=== PATIENT | female | born 1990 | race African-American/Black ===

== ENCOUNTER 2017-01-09 09:30 | Emergency (ER) | payer OTHER, MEDICAID ==
[~2017-01-09] VITALS: Ht 157.5 cm; Wt 137.2 kg
[~2017-01-09 09:30] MED LIST: ALBU8.5H3 INH; ATARAX; BUSP5TAB2 PO; IBUP-1222 PO; OXYC-302 PO; PREN1TAB60 PO; RANI75TA12 PO
[2017-01-09] MEDS ORDERED: FLUORESCEIN OPHTHALMIC 1 MG STRIP ONE (10:14)
[2017-01-09] MEDS ORDERED: PROPARACAINE OPHTH 0.5%, 15ML ONE (10:14)
[2017-01-09] MEDS ORDERED: PROPARACAINE OPHTH 0.5%, 15ML LEFTEYE ONE (10:30)
[2017-01-09] MEDS ORDERED: METOCLOPRAMIDE 5 MG/ML, 2ML IVPush ONE (10:30)
[2017-01-09] MEDS ORDERED: SODIUM CHLORIDE 0.9% 1,000ML IVBOLUS ONE (10:30)
[2017-01-09] MEDS ORDERED: FLUORESCEIN OPHTHALMIC 1 MG STRIP LEFTEYE ONE (10:30)
[2017-01-09] MEDS ORDERED: MECLIZINE CHEWABLE 25 MG TAB PO ONE (10:30)
[2017-01-09] MEDS ORDERED: DIPHENHYDRAMINE 50 MG/ML, 1ML IVPush ONE (10:30)
[2017-01-09] MEDS ORDERED: SODIUM CHLORIDE FLUSH 10ML SYR IVF ONE (10:30)
[2017-01-09] MEDS ORDERED: KETOROLAC 30 MG/1 ML IVPush ONE (10:30)
[2017-01-09] MEDS ORDERED: TRAM50TA2 PO (10:38)
[2017-01-09] MEDS ORDERED: KETOROLAC 30 MG/1 ML ONE (10:44)
[2017-01-09] MEDS ORDERED: MECLIZINE CHEWABLE 25 MG TAB ONE (10:44)
[2017-01-09] MEDS ORDERED: METOCLOPRAMIDE 5 MG/ML, 2ML ONE (10:44)
[2017-01-09] MEDS ORDERED: DIPHENHYDRAMINE 50 MG/ML, 1ML ONE (10:44)
[2017-01-09 12:13] VITALS: BP 143/73
== END 2017-01-09 12:15 | disposition home or self-care (01) ==
LOC: ED 10:41
DX: R51 Headache (principal); R42 Dizziness and giddiness; R11.2 Nausea with vomiting, unspecified
CPT/HCPCS: 96361; 96374; 96375; J1885; J1200; J2765; J7030

== ENCOUNTER 2017-01-24 12:07 | Emergency (ER) | payer MEDICAID, OTHER ==
[~2017-01-24] VITALS: Ht 160 cm; Wt 133.0 kg
[~2017-01-24 12:07] MED LIST changes: +TRAM50TA2 PO
[2017-01-24 13:40] LABS: PATH.CAST-FLAG NOT PRESENT; SPERM-FLAG NOT PRESENT; SRC-FLAG NOT PRESENT; XTAL-FLAG NOT PRESENT; YLC-FLAG NOT PRESENT
[2017-01-24] MEDS ORDERED: HYDROcodone/APAP 5/325 TABLET ONE (13:52)
[2017-01-24] MEDS ORDERED: ONDANSETRON ODT 4 MG ONE (13:53)
[2017-01-24] MEDS ORDERED: HYDROcodone/APAP 5/325 TABLET PO ONE (14:00)
[2017-01-24] MEDS ORDERED: ONDANSETRON ODT 4 MG PO ONE (14:00)
[2017-01-24 14:11] LABS: ASPARTATE AMINO TRANSFERASE 20 U/L (15-37); BLOOD UREA NITROGEN 11 mg/dL (7-18)
[2017-01-24 15:30] VITALS: BP 116/82
== END 2017-01-24 15:58 | disposition home or self-care (01) ==
LOC: ED 13:28
DX: N30.00 Acute cystitis without hematuria (principal); R10.11 Right upper quadrant pain; R10.2 Pelvic and perineal pain; Z88.8 Allergy status to other drugs, medicaments and biological substances
CPT/HCPCS: 36415; 80053; 81001; 83690; 84703; 85025; 87086; 99284; Q0162

== ENCOUNTER 2017-02-14 18:42 | Emergency (ER) | payer MEDICAID ==
[~2017-02-14] VITALS: Ht 157.5 cm; Wt 137.2 kg
[2017-02-14 18:52] VITALS: BP 116/76
[2017-02-14] MEDS ORDERED: SODIUM CHLORIDE FLUSH 10ML SYR IVF ONE (19:30)
[2017-02-14] MEDS ORDERED: SODIUM CHLORIDE 0.9% 1,000ML IVBOLUS ONE (19:30)
[2017-02-14] MEDS ORDERED: METOCLOPRAMIDE 5 MG/ML, 2ML IVPush ONE (19:30)
[2017-02-14] MEDS ORDERED: SUMATRIPTAN 6MG/0.5ML SQ ONE (19:30)
[2017-02-14] MEDS ORDERED: KETOROLAC 30 MG/1 ML IVPush ONE (19:30)
[2017-02-14] MEDS ORDERED: DIPHENHYDRAMINE 50 MG/ML, 1ML IVPush ONE (19:30)
[2017-02-14] MEDS ORDERED: DIPHENHYDRAMINE 50 MG/ML, 1ML ONE (19:38)
[2017-02-14] MEDS ORDERED: KETOROLAC 30 MG/1 ML ONE (19:38)
[2017-02-14] MEDS ORDERED: METOCLOPRAMIDE 5 MG/ML, 2ML ONE (19:38)
[2017-02-14] MEDS ORDERED: OXYC-302 PO (19:47)
[2017-02-14] MEDS ORDERED: IBUP200C PO (19:47)
[2017-02-14] MEDS ORDERED: TRAM50TA2 PO (19:47)
== END 2017-02-14 20:45 | disposition home or self-care (01) ==
LOC: ED 20:30
DX: G44.209 Tension-type headache, unspecified, not intractable (principal)
CPT/HCPCS: 81001; 87086; 96361; 96374; 96375; 99284; J1200; J1885; J2765; J7030

== ENCOUNTER → 2017-08-13 | Outpatient (CLI) | payer MEDICAID ==
[~2017-08-13] MED LIST changes: -ALBU8.5H3 INH; +ALBU8.5H8 INH; +IBUP200C5 PO
== END | disposition home or self-care (01) ==
LOC: CFH 14:01
PROVIDERS: ATTEND Nurse Practitioner Primary Care
DX: S83.511A Sprain of anterior cruciate ligament of right knee, initial encounter (principal); M94.261 Chondromalacia, right knee; M25.461 Effusion, right knee; X58.XXXA Exposure to other specified factors, initial encounter; Y93.89 Activity, other specified; Y92.89 Other specified places as the place of occurrence of the external cause; Y99.8 Other external cause status

== ENCOUNTER 2017-11-05 18:00 | Observation (INO) | payer MEDICAID ==
[~2017-11-05] VITALS: Ht 157.5 cm; Wt 148.1 kg
[2017-11-05] MEDS ORDERED: SODIUM CHLORIDE FLUSH 10ML SYR IVF ONE (18:30)
[2017-11-05 18:51] LABS: BASOPHILS # (AUTO) 0.03 x10^3/uL (0-0.1); BASOPHILS % (AUTO) 0 % (0-1); EOSINOPHILS % (AUTO) 0 % (1-7); LYMPHOCYTES # (AUTO) 0.55 x10^3/uL (1-3.4); LYMPHOCYTES % (AUTO) 5 % (22-44); MD NO; MEAN CORPUSCULAR HEMOGLOBIN 25.3 pg (27.0-34.8); MEAN CORPUSCULAR HGB CONC 32.7 g/dL (32.4-35.8); MEAN CORPUSCULAR VOLUME 77.4 fL (80-100); MEAN PLATELET VOLUME 10.2 fL (7.4-10.4); MONOCYTES # (AUTO) 0.05 x10^3/uL (0.2-0.8); MONOCYTES % (AUTO) 1 % (2-9); NEUTROPHILS # (AUTO) 10.15 x10^3/uL (1.8-6.8); NEUTROPHILS % (AUTO) 94 % (42-75); PLATELET COUNT 322 x10^3/uL (130-400); RED BLOOD COUNT 4.95 x10^6/uL (3.82-5.3); RED CELL DISTRIBUTION WIDTH 16.3 % (9.6-15.2)
[2017-11-05 19:02] LABS: ALANINE AMINOTRANSFERASE 20 U/L (12-78); ALBUMIN 3.2 g/dL (3.4-5.0); ANION GAP 10 mmol/L (5-15); CHLORIDE 108 mmol/L (98-107); CREATININE 1.05 mg/dL (0.55-1.02)
[2017-11-05 19:05] LABS: ALKALINE PHOSPHATASE 85 U/L (45-117); BILIRUBIN,TOTAL 0.3 mg/dL (0.2-1.0); TOTAL PROTEIN 7.3 g/dL (6.4-8.2)
[2017-11-05] MEDS ORDERED: OXYcodone/APAP 7.5/325MG TABLET ONE (19:20)
[2017-11-05] MEDS ORDERED: OXYcodone/APAP 7.5/325MG TABLET PO ONE (19:30)
[2017-11-05] MEDS ORDERED: OMNIPAQUE 350 MG/ML, 100ML BOTTLE ONE (20:09)
[2017-11-05] MEDS ORDERED: ACETAMINOPHEN 325 MG TABLET PO PRN (21:30)
[2017-11-05] MEDS ORDERED: ONDANSETRON 2MG/ML, 2ML IVPush PRN (21:30)
[2017-11-05] MEDS ORDERED: ENOXAPARIN 40 MG/0.4 ML SQ SCH (21:30)
[2017-11-05] MEDS ORDERED: DOCUSATE 100 MG CAPSULE PO PRN (21:30)
[2017-11-05] MEDS ORDERED: POLYETHYLENE GLYCOL 17 GM PACKET PO PRN (21:30)
[2017-11-05 22:15] VITALS: BP 114/75
[2017-11-05] MEDS ORDERED: OXYC-307 PO (22:42)
[2017-11-05] MEDS ORDERED: MELO7.5T31 PO (22:42)
[2017-11-05] MEDS ORDERED: ASPI-650 PO (22:42)
[2017-11-06] MEDS: IBUPROFEN 200 MG TABLET PO SCH ×2 (00:09→12:05)
[2017-11-06 01:09] VITALS: BP 117/73
[2017-11-06] MEDS: INSULIN LISPRO 100 UNITS/ML, PEN SQ-INSULIN SCH ×2 (07:00→11:00)
[2017-11-06 07:32] VITALS: BP 86/52
[2017-11-06] MEDS ORDERED: SENNA/DOCUSATE TABLET PO SCH (09:00)
[2017-11-06] MEDS ORDERED: SODIUM CHLORIDE FLUSH 10ML SYR IVF SCH (09:00)
== END 2017-11-06 12:23 | disposition home or self-care (01) ==
LOC: ED 18:55 → EDIP 21:01 → INTOOBSV 21:01 → 4NOR 22:05 → DCLOUNGE 11-06 12:12
PROVIDERS: ADMIT Family Medicine; ATTEND Family Medicine
DX: R06.00 Dyspnea, unspecified (principal); F41.9 Anxiety disorder, unspecified; E66.01 Morbid (severe) obesity due to excess calories; R73.03 Prediabetes; Z68.43 Body mass index [BMI] 50.0-59.9, adult; Z79.82 Long term (current) use of aspirin
CPT/HCPCS: 36415; 71045; 71275; 80053; 82962; 83880; 85025; 85379; 93005; 96372; 97162; 99285; G0378; G8978; G8979; G8980; J1650; Q9967

== ENCOUNTER 2018-07-19 10:38 | Emergency (ER) | payer OTHER ==
[~2018-07-19] VITALS: Ht 157.5 cm; Wt 144.0 kg
[~2018-07-19 10:38] MED LIST changes: +ASPI-650 PO; +IBUP-1623 PO; -IBUP200C5 PO; +MELO7.5T31 PO; +OXYC-307 PO
[2018-07-19] MEDS ORDERED: SODIUM CHLORIDE FLUSH 10ML SYR IVF ONE (11:00)
[2018-07-19] MEDS ORDERED: MAALOX/HYOSCYAMINE/LIDOCAINE 45 ML BTL PO ONE (11:00)
[2018-07-19] MEDS ORDERED: FAMOTIDINE 20 MG/2 ML IVP ONE (11:00)
[2018-07-19] MEDS ORDERED: SODIUM CHLORIDE 0.9% 1,000ML IVBOLUS ONE (11:00)
[2018-07-19] MEDS ORDERED: ONDANSETRON 2MG/ML, 2ML IVPush ONE (11:00)
[2018-07-19 11:18] LABS: BASOPHILS # (AUTO) 0.01 x10^3/uL (0-0.1); BASOPHILS % (AUTO) 0 % (0-1); EOSINOPHILS # (AUTO) 0.02 x10^3/uL (0-0.4); EOSINOPHILS % (AUTO) 0 % (1-7); LYMPHOCYTES # (AUTO) 0.79 x10^3/uL (1-3.4); LYMPHOCYTES % (AUTO) 9 % (22-44); MD NO; MEAN CORPUSCULAR HEMOGLOBIN 25.1 pg (27.0-34.8); MEAN CORPUSCULAR HGB CONC 32.5 g/dL (32.4-35.8); MEAN CORPUSCULAR VOLUME 77.4 fL (80-100); MEAN PLATELET VOLUME 10.3 fL (7.4-10.4); MONOCYTES # (AUTO) 0.17 x10^3/uL (0.2-0.8); MONOCYTES % (AUTO) 2 % (2-9); NEUTROPHILS # (AUTO) 8.06 x10^3/uL (1.8-6.8); NEUTROPHILS % (AUTO) 89 % (42-75); PLATELET COUNT 310 x10^3/uL (130-400); RED BLOOD COUNT 5.41 x10^6/uL (3.82-5.3); RED CELL DISTRIBUTION WIDTH 15.4 % (9.6-15.2)
[2018-07-19 11:28] LABS: ALANINE AMINOTRANSFERASE 27 U/L (12-78); ALBUMIN 3.3 g/dL (3.4-5.0); CALCIUM 8.9 mg/dL (8.5-10.1); CHLORIDE 109 mmol/L (98-107)
[2018-07-19 11:33] LABS: ALKALINE PHOSPHATASE 94 U/L (45-117); TOTAL PROTEIN 7.5 g/dL (6.4-8.2)
[2018-07-19 12:12] LABS: ANION GAP 12 mmol/L (5-15); BILIRUBIN,TOTAL 0.6 mg/dL (0.2-1.0)
[2018-07-19] MEDS ORDERED: FAMOTIDINE 20 MG/2 ML ONE (12:21)
[2018-07-19] MEDS ORDERED: ONDANSETRON 2MG/ML, 2ML ONE (12:21)
[2018-07-19] MEDS ORDERED: MAALOX/HYOSCYAMINE/LIDOCAINE 45 ML BTL ONE (12:21)
[2018-07-19] MEDS ORDERED: PARO40TA61 PO (12:29)
[2018-07-19] MEDS ORDERED: BUSP5TAB2 PO (12:29)
[2018-07-19 14:01] VITALS: BP 121/73
[2018-07-19 14:35] LABS: MICROSCOPIC NOT IND
[2018-07-19 14:45] LABS: CULTURE INDICATED? NO
== END 2018-07-19 15:36 ==
LOC: ED 15:35
DX: R10.11 Right upper quadrant pain (principal); R11.2 Nausea with vomiting, unspecified; R19.7 Diarrhea, unspecified
CPT/HCPCS: 36415; 76700; 80053; 81003; 83690; 84703; 85025; 93005; 96361; 96374; 96375; 99284; J2405; J3490; J7030

== ENCOUNTER 2019-02-08 19:38 | Emergency (ER) | payer MEDICAID, OTHER ==
[~2019-02-08] VITALS: Ht 157.5 cm; Wt 134.0 kg
[~2019-02-08 19:38] MED LIST changes: +DULO60CA7 PO; +PARO40TA61 PO; +PRAZ2CAP2 PO; +TRAZ-137 PO
--- NOTE | 2019-02-08 19:51 | NUR ---
[facility] FROM [facility] WAITING ROOM, EMT STATED PT WAS IN WAITING AREA X3 HOURS. PT C/O TISSUE DISCHARGE AND DARK BLACK VAGINAL BLEEDING X 1 WEEK, ABD CRAMPING X 2DAYS. PT STATED SHE HAS NOT HAD MENSTAL PERIOD X 1 YEAR ON DEPO SHOT. PT ALSO STATED SHE TOOK HOME PREGANANCY TEST 2 WEEKS AGO THAT WAS +. B/P-136/58, ENROUTE B/P DROPPED TO 80/40 AND ON REVHECK B/P-109/74, HR-90, 95% R/A. PT UP TO RR WITH STEADY GAIT, NOW RESTING ON GURNEY, MONITORS APPLIED, SIDERAILS UP X2, CALL LIGHT WITHIN REACH. TEENAGE PROGRAM DIRECTOR AT BEDSIDE FOR EVAL
--- NOTE | 2019-02-08 20:15 | NUR ---
urine sample taken to lab, pt at ultrasound
[2019-02-08] MEDS ORDERED: MEDR150D3 INJ (20:20)
[2019-02-08] MEDS ORDERED: GLYB1.252 PO (20:20)
--- NOTE | 2019-02-08 20:32 | NUR ---
PT RESTING ON [employer] CON[employer] AT BEDSIDE, MONITORS IN PLACE, CALL LIGHT WITHIN REACH. AWAITING ULTRASOUND AND LAB RESULTS
[2019-02-08 20:35] LABS: MICROSCOPIC INDICATED
[2019-02-08 20:38] LABS: CULTURE INDICATED? YES
[2019-02-08 20:48] LABS: BASOPHILS # (AUTO) 0.02 x10^3/uL (0-0.1); BASOPHILS % (AUTO) 0 % (0-1); EOSINOPHILS # (AUTO) 0.01 x10^3/uL (0-0.4); EOSINOPHILS % (AUTO) 0 % (1-7); LYMPHOCYTES # (AUTO) 1.51 x10^3/uL (1-3.4); LYMPHOCYTES % (AUTO) 23 % (22-44); MD NO; MEAN CORPUSCULAR HEMOGLOBIN 26.1 pg (27.0-34.8); MEAN CORPUSCULAR HGB CONC 31.9 g/dL (32.4-35.8); MEAN CORPUSCULAR VOLUME 81.6 fL (80-100); MEAN PLATELET VOLUME 9.9 fL (7.4-10.4); MONOCYTES # (AUTO) 0.43 x10^3/uL (0.2-0.8); MONOCYTES % (AUTO) 7 % (2-9); NEUTROPHILS # (AUTO) 4.67 x10^3/uL (1.8-6.8); NEUTROPHILS % (AUTO) 70 % (42-75); PLATELET COUNT 277 x10^3/uL (130-400); RED BLOOD COUNT 5.06 x10^6/uL (3.82-5.3)
[2019-02-08 20:56] LABS: ALBUMIN 3.4 g/dL (3.4-5.0); ANION GAP 5 mmol/L (5-15); CHLORIDE 110 mmol/L (98-107)
[2019-02-08 21:02] LABS: ALANINE AMINOTRANSFERASE 20 U/L (12-78); ALKALINE PHOSPHATASE 83 U/L (45-117); BILIRUBIN,TOTAL 0.6 mg/dL (0.2-1.0); CREATININE 1.05 mg/dL (0.55-1.02); TOTAL PROTEIN 7.1 g/dL (6.4-8.2)
[2019-02-08] MEDS ORDERED: ACETAMINOPHEN 325 MG TABLET ONE (21:24)
--- NOTE | 2019-02-08 21:28 | NUR ---
PT MEDICATED PER OCT. RESTING ON GURNEY, MONITORS IN PLACE, CALL LIGHT WITHIN REACH, ALL QUESTIONS ADDRESSED, PROVIDED PT WITH XTRA WARM BLANKET
[2019-02-08 21:29] VITALS: BP 112/62
[2019-02-08] MEDS ORDERED: ACETAMINOPHEN 325 MG TABLET PO ONE (21:30)
== END 2019-02-08 21:45 | disposition home or self-care (01) ==
LOC: ED 20:21
DX: R10.2 Pelvic and perineal pain (principal); N93.8 Other specified abnormal uterine and vaginal bleeding; E66.9 Obesity, unspecified
CPT/HCPCS: 36415; 76830; 80053; 81001; 84702; 85025; 86901; 87086; 99284

== ENCOUNTER 2019-08-04 17:32 | Emergency (ER) | payer MEDICAID ==
[~2019-08-04] VITALS: Ht 157.5 cm; Wt 144.7 kg
[~2019-08-04 17:32] MED LIST changes: +GLYB1.252 PO; +MEDR150D3 INJ; +RANI-244 PO; -RANI75TA12 PO
--- NOTE | 2019-08-04 18:39 | NUR ---
UA SENT TO LAB. PT RESTING IN [facility], CALL LIGHT WITHIN REACH
[2019-08-04 18:58] LABS: MEAN CORPUSCULAR HEMOGLOBIN 26.6 pg (27.0-34.8); MEAN CORPUSCULAR VOLUME 82.4 fL (80-100); RED BLOOD COUNT 4.86 x10^6/uL (3.82-5.3)
[2019-08-04 18:59] LABS: BASOPHILS # (AUTO) 0.04 x10^3/uL (0-0.1); BASOPHILS % (AUTO) 1 % (0-1); EOSINOPHILS % (AUTO) 1 % (1-7); LYMPHOCYTES # (AUTO) 1.73 x10^3/uL (1-3.4); LYMPHOCYTES % (AUTO) 20 % (22-44); MD NO; MEAN CORPUSCULAR HGB CONC 32.3 g/dL (32.4-35.8); MEAN PLATELET VOLUME 9.1 fL (7.4-10.4); MONOCYTES # (AUTO) 0.67 x10^3/uL (0.2-0.8); MONOCYTES % (AUTO) 8 % (2-9); NEUTROPHILS # (AUTO) 5.92 x10^3/uL (1.8-6.8); NEUTROPHILS % (AUTO) 70 % (42-75); PLATELET COUNT 252 x10^3/uL (130-400); RED CELL DISTRIBUTION WIDTH 15.6 % (9.6-15.2)
--- NOTE | 2019-08-04 19:02 | NUR ---
PT RESTING IN [facility], AWAITING LAB RESULTS. CALL LIGHT WITHIN REACH
[2019-08-04 19:03] LABS: CULTURE INDICATED? YES; MICROSCOPIC INDICATED
[2019-08-04 19:09] LABS: ALBUMIN 3.2 g/dL (3.4-5.0); ANION GAP 6 mmol/L (5-15); CALCIUM 9.1 mg/dL (8.5-10.1); CHLORIDE 106 mmol/L (98-107)
[2019-08-04 19:12] LABS: ALANINE AMINOTRANSFERASE 30 U/L (12-78); ALKALINE PHOSPHATASE 79 U/L (45-117); BILIRUBIN,TOTAL 0.7 mg/dL (0.2-1.0); CREATININE 0.65 mg/dL (0.55-1.02); TOTAL PROTEIN 7.3 g/dL (6.4-8.2)
[2019-08-04 22:17] VITALS: BP 128/76
== END 2019-08-04 22:19 | disposition home or self-care (01) ==
LOC: ED 22:15
DX: O26.891 Other specified pregnancy related conditions, first trimester (principal); B96.89 Other specified bacterial agents as the cause of diseases classified elsewhere; E11.9 Type 2 diabetes mellitus without complications; Z90.49 Acquired absence of other specified parts of digestive tract; Z3A.01 Less than 8 weeks gestation of pregnancy
CPT/HCPCS: 36415; 76801; 80053; 81001; 83690; 84702; 85025; 87086; 99284

== ENCOUNTER 2019-08-28 17:37 | Emergency (ER) | payer BC, MEDICAID ==
[~2019-08-28] VITALS: Ht 157.5 cm; Wt 143.9 kg
--- NOTE | 2019-08-28 18:13 | NUR ---
STOREKEEPER HELPER: URINE COLLECTED AND SENT TO LAB.
[2019-08-28 18:23] LABS: MICROSCOPIC NOT IND
[2019-08-28 18:26] LABS: CULTURE INDICATED? NO
--- NOTE | 2019-08-28 19:42 | NUR ---
PT MOVED TO ROOM
[2019-08-28 19:52] VITALS: BP 130/72
--- NOTE | 2019-08-28 19:53 | NUR ---
THIS IS A 29Y F THAT COMES IN FOR INABLILITY TO URINIATE AND CONSTIPATION. PER PT SHE DRANK MAG CIT[employer] THIS WEEK TO "CLEAR" HERSELF OUT PER OB NURSE INSTRUCTION BUT STILL FEELS CONSTIPATED NOW SHE STS SHE CANNOT URINATE AND HAS PAIN INTO HER KIDNEY WHEN SHE TRIES TO PEE. PT HAS HX OF KIDNEY STONES. PT CONNECTED TO MONITORING VSSHONE[employer]. MED STUDENT AT BEDSIDE.
[2019-08-28] MEDS ORDERED: PINK LADY ENEMA 490 ML BOTTLE PR ONE (20:30)
== END 2019-08-28 20:51 | disposition home or self-care (01) ==
LOC: ED 20:22
DX: O26.891 Other specified pregnancy related conditions, first trimester (principal); K59.00 Constipation, unspecified; E11.9 Type 2 diabetes mellitus without complications; E66.9 Obesity, unspecified; Z3A.11 11 weeks gestation of pregnancy
CPT/HCPCS: 81003; 99284

== ENCOUNTER 2019-10-09 10:40 | Emergency (ER) | payer BC, MEDICAID ==
[~2019-10-09] VITALS: Ht 157.5 cm; Wt 140.0 kg
[~2019-10-09 10:40] MED LIST changes: -TRAZ-137 PO; +TRAZ-175 PO
--- NOTE | 2019-10-09 11:31 | NUR ---
HOT PATCHER: PT TO ROOM FROM [facility]
[2019-10-09] MEDS ORDERED: ONDANSETRON 2MG/ML, 2ML IVPush ONE (12:00)
[2019-10-09] MEDS ORDERED: SODIUM CHLORIDE 0.9% 1,000ML IVBOLUS ONE (12:00)
[2019-10-09] MEDS ORDERED: SODIUM CHLORIDE FLUSH 10ML SYR IVF ONE (12:00)
[2019-10-09 12:13] LABS: BASOPHILS # (AUTO) 0.01 x10^3/uL (0-0.1); BASOPHILS % (AUTO) 0 % (0-1); EOSINOPHILS % (AUTO) 0 % (1-7); LYMPHOCYTES # (AUTO) 0.31 x10^3/uL (1-3.4); LYMPHOCYTES % (AUTO) 7 % (22-44); MD NO; MEAN CORPUSCULAR HEMOGLOBIN 26.8 pg (27.0-34.8); MEAN CORPUSCULAR HGB CONC 32.9 g/dL (32.4-35.8); MEAN CORPUSCULAR VOLUME 81.5 fL (80-100); MEAN PLATELET VOLUME 9.8 fL (7.4-10.4); MONOCYTES # (AUTO) 0.35 x10^3/uL (0.2-0.8); MONOCYTES % (AUTO) 7 % (2-9); NEUTROPHILS # (AUTO) 4.08 x10^3/uL (1.8-6.8); NEUTROPHILS % (AUTO) 86 % (42-75); PLATELET COUNT 237 x10^3/uL (130-400); RED BLOOD COUNT 4.82 x10^6/uL (3.82-5.3); RED CELL DISTRIBUTION WIDTH 14.8 % (9.6-15.2)
[2019-10-09 12:15] LABS: RAPID INFLUENZA A POSITIVE (Negative); RAPID INFLUENZA B Negative (Negative)
[2019-10-09] MEDS ORDERED: ONDANSETRON 2MG/ML, 2ML ONE (12:16)
[2019-10-09 12:26] LABS: ALANINE AMINOTRANSFERASE 15 U/L (12-78); ALBUMIN 2.8 g/dL (3.4-5.0); ANION GAP 8 mmol/L (5-15); CALCIUM 8.6 mg/dL (8.5-10.1); CHLORIDE 108 mmol/L (98-107); CREATININE 0.55 mg/dL (0.55-1.02)
[2019-10-09 12:28] LABS: ALKALINE PHOSPHATASE 68 U/L (45-117); BILIRUBIN,TOTAL 0.2 mg/dL (0.2-1.0); TOTAL PROTEIN 6.9 g/dL (6.4-8.2)
[2019-10-09 13:08] LABS: CULTURE INDICATED? YES
[2019-10-09 13:23] LABS: MICROSCOPIC INDICATED
[2019-10-09 13:42] VITALS: BP 110/80
== END 2019-10-09 14:03 | disposition home or self-care (01) ==
LOC: ED 12:34
DX: O23.12 Infections of bladder in pregnancy, second trimester (principal); O21.9 Vomiting of pregnancy, unspecified; O24.419 Gestational diabetes mellitus in pregnancy, unspecified control; K52.9 Noninfective gastroenteritis and colitis, unspecified; J10.1 Influenza due to other identified influenza virus with other respiratory manifestations; Z90.49 Acquired absence of other specified parts of digestive tract; Z3A.17 17 weeks gestation of pregnancy
CPT/HCPCS: 36415; 80053; 81001; 83690; 85025; 87086; 87147; 87400; 96361; 96374; 99283; J2405; J7030

== ENCOUNTER 2020-01-09 15:33 | Outpatient (CLI) | payer MEDICAID ==
[~2020-01-09] VITALS: Ht 154.9 cm; Wt 150.0 kg
[2020-01-09 17:29] VITALS: BP 120/65
== END 2020-01-09 16:00 | disposition home or self-care (01) ==
LOC: LDOP 15:33
PROVIDERS: ATTEND Obstetrics & Gynecology
DX: O26.893 Other specified pregnancy related conditions, third trimester (principal); R25.2 Cramp and spasm; Z3A.30 30 weeks gestation of pregnancy
CPT/HCPCS: 59025; 99211; G0463

== ENCOUNTER 2020-02-18 00:16 | Outpatient (CLI) | payer MEDICAID ==
[~2020-02-18] VITALS: Ht 157.5 cm; Wt 140.9 kg
[2020-02-18 01:57] LABS: MICROSCOPIC INDICATED
== END 2020-02-18 02:35 | disposition home or self-care (01) ==
LOC: LDOP 00:16
PROVIDERS: ATTEND Obstetrics & Gynecology
DX: O46.93 Antepartum hemorrhage, unspecified, third trimester (principal); Z3A.36 36 weeks gestation of pregnancy
CPT/HCPCS: 59025; 81001; 82962; 87081; 87086; 87147

== ENCOUNTER 2020-02-22 10:12 | Outpatient (CLI) | payer MEDICAID ==
[~2020-02-22] VITALS: Ht 157.5 cm; Wt 143.6 kg
[2020-02-22 10:16] VITALS: BP 121/59
== END 2020-02-22 12:00 | disposition home or self-care (01) ==
LOC: LDOP 10:12
PROVIDERS: ATTEND Obstetrics & Gynecology
DX: O42.913 Preterm premature rupture of membranes, unspecified as to length of time between rupture and onset of labor, third trimester (principal); Z3A.36 36 weeks gestation of pregnancy
CPT/HCPCS: 59025; 89060; Q0114

== ENCOUNTER 2020-03-07 02:46 | Inpatient (IN) | payer MEDICAID ==
[~2020-03-07] VITALS: Ht 157.5 cm; Wt 145.4 kg
[2020-03-07] MEDS ORDERED: OXYTOCIN 30U/ 0.9% NaCL 500ML 500 ML IV ONE (05:56)
[2020-03-07] MEDS ORDERED: TERBUTALINE 1 MG/ML, 1ML SQ PRN (06:00)
[2020-03-07] MEDS ORDERED: ONDANSETRON 2MG/ML, 2ML IVPush PRN (06:00)
[2020-03-07] MEDS ORDERED: FENTANYL PF 100 MCG/2ML IV PRN (06:00)
[2020-03-07] MEDS ORDERED: FENTANYL PF 100 MCG/2ML IVPush PRN (06:00)
[2020-03-07] MEDS ORDERED: PENICILLIN GK 5,000,000 UNITS in DEXTROSE 5% 100 ML IVPB ONE (06:00)
[2020-03-07] MEDS ORDERED: TERBUTALINE 1 MG/ML, 1ML IVPush PRN (06:00)
[2020-03-07 06:09] VITALS: BP 118/71
[2020-03-07] MEDS ORDERED: PREN-3 PO (06:19)
[2020-03-07] MEDS ORDERED: INSU100V34 SQ-INSULIN ×2 (06:20→06:21)
[2020-03-07] MEDS ORDERED: INSU100V34 SQ (06:20)
[2020-03-07] MEDS ORDERED: INSU100I34 SQ-INSULIN (06:22)
[2020-03-07] MEDS: LACTATED RINGERS 1,000 ML IV SCH ×4 (06:31→21:30)
[2020-03-07] MEDS ORDERED: OXYTOCIN 30U/ 0.9% NaCL 500ML 500 ML ONE ×2 (06:33→19:35)
[2020-03-07 06:50] LABS: MEAN CORPUSCULAR HEMOGLOBIN 25.5 pg (27.0-34.8); MEAN CORPUSCULAR HGB CONC 32.3 g/dL (32.4-35.8); MEAN PLATELET VOLUME 9.8 fL (7.4-10.4); PLATELET COUNT 238 x10^3/uL (130-400); RED BLOOD COUNT 4.39 x10^6/uL (3.82-5.3); RED CELL DISTRIBUTION WIDTH 15.9 % (9.6-15.2)
[2020-03-07 07:20] LABS: BASOPHILS # (AUTO) 0.02 x10^3/uL (0-0.1); BASOPHILS % (AUTO) 0 % (0-1); EOSINOPHILS # (AUTO) 0.01 x10^3/uL (0-0.4); EOSINOPHILS % (AUTO) 0 % (1-7); LYMPHOCYTES # (AUTO) 1.25 x10^3/uL (1-3.4); LYMPHOCYTES % (AUTO) 16 % (22-44); MD SCAN; MONOCYTES # (AUTO) 0.56 x10^3/uL (0.2-0.8); MONOCYTES % (AUTO) 7 % (2-9); NEUTROPHILS # (AUTO) 5.79 x10^3/uL (1.8-6.8); NEUTROPHILS % (AUTO) 76 % (42-75)
[2020-03-07] MEDS ORDERED: NEWBORN KIT ONE (07:27)
[2020-03-07] MEDS ORDERED: LIDOCAINE 1%, 20ML ONE ×2 (07:28→12:00)
[2020-03-07] MEDS ORDERED: MISOPROSTOL 200 MCG TABLET ONE (07:28)
[2020-03-07] MEDS ORDERED: OXYTOCIN 30U/ 0.9% NaCL 500ML 500 ML IV PRN (07:37)
[2020-03-07] MEDS ORDERED: HYDROCORTISONE CRM 1%, 30GM TP PRN ×2 (10:00→11:30)
[2020-03-07] MEDS: PENICILLIN GK 2,500,000 UNITS in DEXTROSE 5% 100 ML IVPB SCH ×2 (10:24→14:32)
[2020-03-07] MEDS ORDERED: FENTANYL/BUPIV./NS/PF 250 ML EPIDCONT ONE ×2 (10:47→12:00)
[2020-03-07] MEDS ORDERED: CALCIUM CARBONATE 500 MG TAB.CHEW ONE ×2 (11:12→14:36)
[2020-03-07] MEDS: CALCIUM CARBONATE 500 MG TAB.CHEW PO PRN ×2 (11:13→14:37)
[2020-03-07] MEDS ORDERED: HYDROCORTISONE CRM 0.5%, 30GM TP PRN (11:30)
[2020-03-07] MEDS ORDERED: BUPIVACAINE 0.25% ONE ×2 (11:54→12:00)
[2020-03-07] MEDS ORDERED: LIDOCAINE/PF 1.5%-EPI 1:200K, 30ML ONE (12:00)
[2020-03-07] MEDS ORDERED: FENTANYL/BUPIV./NS/PF 250 ML EPIDCONT SCH (12:30)
[2020-03-07] MEDS ORDERED: EPHEDRINE 50 MG/ML, 1ML IVPush PRN (12:30)
[2020-03-07] MEDS ORDERED: LACTATED RINGERS 1,000 ML IVBOLUS PRN (13:00)
[2020-03-07] MEDS ORDERED: DIPHENHYDRAMINE 25 MG CAPSULE ONE (16:09)
[2020-03-07] MEDS ORDERED: DIPHENHYDRAMINE 50 MG CAPSULE PO ONE (16:30)
[2020-03-07] MEDS ORDERED: SIMETHICONE 80 MG CHEW TAB PO PRN (19:00)
[2020-03-07] MEDS ORDERED: ONDANSETRON 2MG/ML, 2ML IV PRN (19:00)
[2020-03-07] MEDS ORDERED: MISOPROSTOL 200 MCG TABLET PR PRN (19:00)
[2020-03-07] MEDS ORDERED: OXYcodone IR 5MG TABLET PO PRN (19:00)
[2020-03-07] MEDS ORDERED: ACETAMINOPHEN 325 MG TABLET PO PRN (19:00)
[2020-03-07] MEDS: OXYTOCIN 30U/ 0.9% NaCL 500ML 500 ML IV SCH (19:40)
[2020-03-07] MEDS ORDERED: metFORMIN 500 MG TABLET ONE (20:46)
[2020-03-07] MEDS ORDERED: IBUPROFEN 600 MG TABLET ONE (20:59)
[2020-03-07] MEDS ORDERED: OXYcodone/APAP 5/325MG TABLET ONE (21:00)
[2020-03-07] MEDS: IBUPROFEN 600 MG TABLET PO PRN (21:18)
[2020-03-07] MEDS: OXYcodone/APAP 5/325MG TABLET PO PRN (21:19)
[2020-03-07] MEDS: metFORMIN 500 MG TABLET PO SCH (21:20)
[2020-03-07 22:34] VITALS: BP 122/77
[2020-03-08] MEDS: OXYcodone/APAP 5/325MG TABLET PO PRN ×3 (02:14→20:56)
[2020-03-08 02:20] VITALS: BP 120/82
[2020-03-08] MEDS: OXYTOCIN 30U/ 0.9% NaCL 500ML 500 ML IV SCH ×2 (04:45→14:45)
[2020-03-08] MEDS: LACTATED RINGERS 1,000 ML IV SCH ×3 (05:00→21:00)
[2020-03-08 06:07] LABS: BASOPHILS # (AUTO) 0.03 x10^3/uL (0-0.1); BASOPHILS % (AUTO) 0 % (0-1); EOSINOPHILS # (AUTO) 0.04 x10^3/uL (0-0.4); EOSINOPHILS % (AUTO) 0 % (1-7); LYMPHOCYTES # (AUTO) 1.39 x10^3/uL (1-3.4); LYMPHOCYTES % (AUTO) 15 % (22-44); MD NO; MEAN CORPUSCULAR HEMOGLOBIN 25.4 pg (27.0-34.8); MEAN CORPUSCULAR VOLUME 79.4 fL (80-100); MEAN PLATELET VOLUME 9.3 fL (7.4-10.4); MONOCYTES # (AUTO) 0.73 x10^3/uL (0.2-0.8); MONOCYTES % (AUTO) 8 % (2-9); NEUTROPHILS # (AUTO) 7.11 x10^3/uL (1.8-6.8); NEUTROPHILS % (AUTO) 76 % (42-75); PLATELET COUNT 200 x10^3/uL (130-400); RED BLOOD COUNT 4.29 x10^6/uL (3.82-5.3); RED CELL DISTRIBUTION WIDTH 15.9 % (9.6-15.2)
[2020-03-08] MEDS: IBUPROFEN 600 MG TABLET PO PRN ×3 (06:25→22:54)
[2020-03-08 07:15] VITALS: BP 90/52
[2020-03-08] MEDS: DOCUSATE 100 MG CAPSULE PO PRN ×2 (09:02→20:56)
[2020-03-08] MEDS: PRENATAL VIT/IRON/FA 1 EACH TABLET PO SCH (09:03)
[2020-03-08] MEDS: metFORMIN 500 MG TABLET PO SCH ×2 (09:03→17:43)
[2020-03-08] MEDS ORDERED: DIPH,PERTUSS(ACELL),TET VAC/PF NC IM-VACC ONE ×2 (09:29→10:00)
[2020-03-08] MEDS ORDERED: HYDROCORTISONE CRM 0.5%, 30GM TP PRN (11:59)
[2020-03-08 12:00] VITALS: BP 130/73
[2020-03-08 16:10] VITALS: BP 104/63
[2020-03-08 20:00] VITALS: BP 107/76
[2020-03-08] MEDS: CALCIUM CARBONATE 500 MG TAB.CHEW PO PRN (23:44)
[2020-03-09] MEDS: OXYTOCIN 30U/ 0.9% NaCL 500ML 500 ML IV SCH (00:45)
[2020-03-09] MEDS: IBUPROFEN 600 MG TABLET PO PRN (04:28)
[2020-03-09] MEDS: CALCIUM CARBONATE 500 MG TAB.CHEW PO PRN ×3 (04:28→09:35)
[2020-03-09] MEDS: LACTATED RINGERS 1,000 ML IV SCH (05:00)
[2020-03-09] MEDS: metFORMIN 500 MG TABLET PO SCH (07:33)
[2020-03-09] MEDS: PRENATAL VIT/IRON/FA 1 EACH TABLET PO SCH (07:34)
[2020-03-09] MEDS: DOCUSATE 100 MG CAPSULE PO PRN (07:34)
[2020-03-09 08:00] VITALS: BP 131/84
[2020-03-09] MEDS ORDERED: IBUP-1222 PO (09:56)
[2020-03-09] MEDS ORDERED: CALCIUM CARBONATE 500 MG TAB.CHEW PO PRN (10:00)
[2020-03-09] MEDS ORDERED: OXYC-302 PO (10:12)
== END 2020-03-09 10:40 | disposition home or self-care (01) | DRG 807 ==
LOC: LDIP 05:54 → 2NW 22:02
PROVIDERS: ADMIT Obstetrics & Gynecology; ATTEND Obstetrics & Gynecology
PROC: 10E0XZZ Delivery of Products of Conception, External Approach (ICD-10-PCS; principal; 2020-03-07)
PROC: 0UQMXZZ Repair Vulva, External Approach (ICD-10-PCS; 2020-03-07)
PROC: 3E0R3BZ Introduction of Anesthetic Agent into Spinal Canal, Percutaneous Approach (ICD-10-PCS; 2020-03-07)
PROC: 00HU33Z Insertion of Infusion Device into Spinal Canal, Percutaneous Approach (ICD-10-PCS; 2020-03-07)
PROC: 3E0P7VZ Introduction of Hormone into Female Reproductive, Via Natural or Artificial Opening (ICD-10-PCS; 2020-03-07)
DX: O24.12 Pre-existing type 2 diabetes mellitus, in childbirth (principal); Z37.0 Single live birth; O71.82 Other specified trauma to perineum and vulva; O99.215 Obesity complicating the puerperium; E66.01 Morbid (severe) obesity due to excess calories; Z88.8 Allergy status to other drugs, medicaments and biological substances; Z3A.00 Weeks of gestation of pregnancy not specified; Z20.828 Contact with and (suspected) exposure to other viral communicable diseases; E11.9 Type 2 diabetes mellitus without complications
CPT/HCPCS: 36415; J3490; 82962; 85025; 86592; 86850; 86900; 87635; 90715; G0378; J2540; J2590; J3010; J7120